=== PATIENT | female | born 1935 | race American Indian/Alaskan Native ===

== ENCOUNTER 2017-06-27 12:44 | Outpatient (CLI) | payer MEDICARE ==
[2017-06-27 13:27] LABS: Hematocrit 40.8 % (30.3-42.9); Hemoglobin 13.3 gm/dl (10.1-14.3); Mean Corpuscular HGB Conc 33 % (30-34); Mean Corpuscular Hemoglobin 28 pg (28-32); Mean Corpuscular Volume 85 fl (79-97); Platelet Count 274 K/mm3 (140-440); Red Blood Count 4.77 M/mm3 (3.65-5.03)
[2017-06-27 13:41] LABS: Alanine Aminotransferase 9 units/L (7-56); Albumin 4.2 g/dL (3.9-5); BUN/Creatinine Ratio 22; Blood Urea Nitrogen 11 mg/dL (7-17); Calcium 10.4 mg/dL (8.4-10.2); Chol/HDL Ratio 2.16 %; HDL Cholesterol 93 mg/dL (40-59); Hemolysis Index 2; LDL Cholesterol,Direct 96 mg/dL (50-130)
--- NOTE | 2017-06-27 14:16 | XRay Report ---
XRAY CHEST TWO VIEWS: 06/27/17 12:44:00 CLINICAL: Cough. COMPARISON: None FINDINGS: Normal heart and pulmonary vasculature.Aortic tortuosity and elongation. The lungs are hyperexpanded and hyperlucent.No air space disease or pleural effusion.The bones and soft tissues are unremarkable. IMPRESSION: COPD.No acute change.
--- NOTE | 2017-06-28 07:15 | Cat Scan Report ---
CT scan of chest with IV contrast: Compared to report dated. History: Pulmonary nodules. Findings: There is enlargement noted of the left lobe of thyroid gland with multiple hypodensities within the lobe. Right lung appears normal. No mediastinal mass or adenopathy. Minimal pericardial effusion. No pleural effusion. 3 mm left pleural-based lung nodule without interval change. Series 2 image 70. Ill-defined linear densities left lower lobe suggestive discoid atelectasis/segmental atelectasis. Apical scarring bilaterally. Impression: Hypodensity left lobe of thyroid gland. Sonographic correlation advised. Minimal left pericardial effusion. Stable left pulmonary nodule. Segmental and discoid atelectasis left lower lobe. Bilateral apical scarring.
== END 2017-06-27 12:45 | disposition home or self-care (01) ==
LOC: CT 12:44
PROVIDERS: ATTEND Internal Medicine
DX: J44.9 Chronic obstructive pulmonary disease, unspecified (principal); I31.3 Pericardial effusion (noninflammatory); E04.9 Nontoxic goiter, unspecified; J98.4 Other disorders of lung; R91.1 Solitary pulmonary nodule; I10 Essential (primary) hypertension; F17.200 Nicotine dependence, unspecified, uncomplicated
CPT/HCPCS: 36415; 71046; 71260; 80053; 80061; 84436; 84443; 85027; Q9967

== ENCOUNTER 2019-07-24 10:52 | Outpatient (CLI) | payer MEDICARE ==
[2019-07-24 11:22] LABS: Hemoglobin 13.4 gm/dl (10.1-14.3); Mean Corpuscular HGB Conc 34 % (30-34); Mean Corpuscular Volume 84 fl (79-97); Platelet Count 205 K/mm3 (140-440); Red Blood Count 4.78 M/mm3 (3.65-5.03); Red Cell Distribution Width 16.5 % (13.2-15.2)
[2019-07-24 11:46] LABS: Alanine Aminotransferase 10 units/L (7-56); BUN/Creatinine Ratio 27; Blood Urea Nitrogen 16 mg/dL (7-17); Calcium 10.2 mg/dL (8.4-10.2); Hemolysis Index 3
--- NOTE | 2019-07-24 12:33 | XRay Report ---
CHEST 2 VIEWS / XR chest routine 2V INDICATION / CLINICAL INFORMATION: COPD,PLUMONARY NODULE. COMPARISON: 06/27/2017 CXR. FINDINGS: Frontal and lateral chest radiographs again demonstrate hyperexpanded lungs without pleura l effusions or CHF. Mild aortic knob calcifications. Grossly normal cardiomediastinal silhouette. Demineralized bones. IMPRESSION: COPD again noted without definite acute significant chest process, as described. Please correlate. Signer Name: Blaze Coffey Signed: 07/24/2019 12:28 PM Workstation Name: [id number]
--- NOTE | 2019-07-24 13:32 | Cat Scan Report ---
CT chest w con INDICATION / CLINICAL INFORMATION: PULMONARY NODULE [id number] 100ml. TECHNIQUE: All CT scans at this location are performed using CT dose reduction for ALARA by means of automated exposure control. COMPARISON: 06/27/[address] FINDINGS: Chest CT performed following IV contrast again demonstrates cardiomegaly. Slight increased pericardial effusion with now maximum AP thickness of 1.6 cm, axial image 93, series 2, previously a pproximately 1.2 cm in similar location. No aortic aneurysm, dissection or suspicious pulmonary kaz rial filling defects. Mild aortic atherosclerotic calcifications. Patent central airway. No size s ignificant adenopathy. Asymmetric left thyroid lobe heterogeneous enlargement with few small intrins ic hypodense areas again noted. Subtle 1.6 cm slightly hypodense/cystic focus may also be noted ante riorly near midline at the level of the thyroid gland as on axial image 14, series 2, previously some what more prominent at 2.5 cm and may represent a thyroglossal duct cyst, amongst others. Stable mild biapical slightly nodular scarring. Subtle left upper lobe peripheral subpleural 2 mm no dular density again noted, axial image 36, series 2. No new focal suspicious lung nodules have appea red. Stable left lower lobe volume loss/partial chronic consolidation measuring up to approximately 3 cm on axial image 72 again seen. Small left lung base presumed pleural fluid may also be slightly increased as on axial image 107. Mild COPD. No acute significant abnormality in the imaged upper abdomen. Asymmetric left maxillary sinus opacit y inferiorly incidentally noted. Demineralized bones without definite focal aggressive osseous proce ss. IMPRESSION: 1. Mild interval increase in left lung base pleural/pericardial effusion suspected behind the left v entricle in this patient with chronic left lower lobe volume loss/consolidation, as described. Pleas e correlate. 2. Cardiomegaly, COPD, mild biapical scarring and asymmetrically heterogeneous left thyroid lobe enl argement again noted. 3. 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 Signer Name: Blaze Coffey Signed: 07/24/2019 1:27 PM Workstation Name: [id number]
== END 2019-07-24 10:53 | disposition home or self-care (01) ==
LOC: CT 10:52
PROVIDERS: ATTEND Internal Medicine
DX: J44.9 Chronic obstructive pulmonary disease, unspecified (principal); R91.1 Solitary pulmonary nodule; I51.7 Cardiomegaly; I31.3 Pericardial effusion (noninflammatory); I25.10 Atherosclerotic heart disease of native coronary artery without angina pectoris; E04.8 Other specified nontoxic goiter
CPT/HCPCS: 36415; 71046; 71260; 80053; 85027; Q9967